=== PATIENT | male | born 1950 | race Two or more races ===

== ENCOUNTER 2023-04-27 16:11 | Emergency (ER) | payer OTHER ==
[~2023-04-27] VITALS: Ht 175.3 cm; Wt 88.0 kg
[2023-04-27] MEDS ORDERED: METFORMIN HCL1000 M2 (17:18)
[2023-04-27] MEDS ORDERED: LIPITOR20 MG (17:19)
[2023-04-27] MEDS ORDERED: COZAAR50 MG (17:19)
[2023-04-27 18:37] LABS: HEMATOCRIT 38.9 % (39.0-48.0); HEMOGLOBIN 13.2 g/dL (13-16.00); MEAN CORPUSCULAR HEMOGLOBIN 34.7 pg (27.00-32.0); PLATELET COUNT 134 K/uL (150-450); RED BLOOD COUNT 3.81 M/uL (4.00-6.00); RED CELL DISTRIBUTION WIDTH 13.8 % (11.5-14.5)
[2023-04-27 18:55] LABS: D DIMER 0.26 MG/L; INR 1.26; PARTIAL THROMBOPLASTIN TIME 25.1 SECONDS (22.0-34.0)
[2023-04-27 18:59] LABS: ALBUMIN 4.2 gm/dL (3.4-5.0); BILIRUBIN TOTAL 1.41 mg/dL (0.3-1.2); CALCIUM 9.9 mg/dL (8.5-10.1); CREATININE SERUM 1.14 mg/dL (0.70-1.30); GFR 63.14; GLOBULINA 4.2 G/DL (2.4-3.5); POTASSIUM 4.38 mEq/L (3.5-5.1); TOTAL PROTEIN 8.4 gm/dL (6.4-8.2)
== END 2023-04-27 20:51 | disposition home or self-care (01) ==
LOC: ER 16:11
PROVIDERS: Emergency Medicine
DX: A92.8 Other specified mosquito-borne viral fevers (principal); T14.8XXA Other injury of unspecified body region, initial encounter; R53.81 Other malaise; Z91.013 Allergy to seafood

== ENCOUNTER → 2023-05-30 | Outpatient (CLI) | payer OTHER ==
[~2023-05-30] MED LIST: COZAAR50 MG; LIPITOR20 MG; METFORMIN HCL1000 M2
== END | disposition home or self-care (01) ==
LOC: TOM 12:59
PROVIDERS: ATTEND Internal Medicine Cardiovascular Disease
DX: I63.50 Cerebral infarction due to unspecified occlusion or stenosis of unspecified cerebral artery (principal)

== ENCOUNTER 2023-06-06 08:51 | Outpatient (CLI) | payer OTHER | END 2023-06-06 08:53 | disposition home or self-care (01) | LOC: NUCLEAR 08:51 | PROVIDERS: ATTEND Internal Medicine Cardiovascular Disease | DX: I73.9 Peripheral vascular disease, unspecified (principal) ==